=== PATIENT | male | born 1995 | race Caucasian/White ===

== ENCOUNTER 2019-08-06 13:38 | Inpatient (IN) ==
[2019-08-06] MEDS ORDERED: PHENOBARBITAL IV PRN (15:34)
[2019-08-06] MEDS ORDERED: SALINE LOCK IV FLUID XX ONE (15:34)
[2019-08-06] MEDS ORDERED: SENOKOT PO PRN (15:34)
[2019-08-06] MEDS ORDERED: SEROQUEL PO PRN (15:34)
[2019-08-06] MEDS ORDERED: ATARAX PO PRN (15:34)
[2019-08-06] MEDS ORDERED: D5W 1,000 ML IV PRN (15:34)
[2019-08-06] MEDS ORDERED: BENTYL PO PRN (15:34)
[2019-08-06] MEDS ORDERED: TUBERSOL ID ONE (15:34)
[2019-08-06] MEDS ORDERED: MOTRIN PO PRN (15:34)
[2019-08-06] MEDS ORDERED: ROBAXIN PO PRN (15:34)
[2019-08-06] MEDS ORDERED: DULCOLAX PR PRN (15:34)
[2019-08-06] MEDS ORDERED: ZOFRAN ODT PO PRN (15:34)
[2019-08-06] MEDS ORDERED: MAALOX PLUS LIQUID PO PRN (15:34)
[2019-08-06] MEDS ORDERED: ZOFRAN IV PRN (15:34)
[2019-08-06] MEDS ORDERED: IMODIUM PO PRN (15:34)
[2019-08-06] MEDS ORDERED: TYLENOL PO PRN (15:34)
[2019-08-06] MEDS ORDERED: DESYREL PO PRN (15:34)
[2019-08-06] MEDS ORDERED: NICODERM PATCH TD PRN (15:34)
[2019-08-06] MEDS ORDERED: LIBRIUM PO SCH (15:45)
[2019-08-06 16:07] LABS: HEMATOCRIT 45.3 % (42.0-52.0); HEMOGLOBIN 15.7 g/dL (14.0-18.0); MCH 30.8 PG (27-31); MCHC 34.7 g/dL (33-37); MCV 88.8 FL (81-99); MPV 10.8 FL (7.4-10.4); RBC 5.1 XMIL (4.7-6.1); RDW 11.8 % (11.5-14.5); WBC 5.83 X1000 (4.8-10.8)
[2019-08-06 16:22] LABS: PROTIME 13.7 Seconds (11.0-16.0)
[2019-08-06 16:27] LABS: AMYLASE 22 U/L (20-200); LIPASE 32 U/L (13-60)
[2019-08-06 16:29] LABS: AGAP 10; ALBUMIN 4.9 g/dL (3.5-5.0); ALKALINE PHOSPHATASE 49 U/L (32-122); BUN 15 mg/dL (8-22); CHLORIDE 101 mmol/L (98-107); COSMO 278; CREATININE 0.7 mg/dL (0.7-1.2); ESTIMATED GFR > 60; GLUCOSE 85 mg/dL (70-104); GOT 14 U/L (10-34); GPT 11 U/L (10-44); SODIUM 139 mmol/L (136-145); TCO2 28 mmol/L (25-35); TOTAL PROTEIN 7.5 g/dL (6.3-8.3)
[2019-08-06 18:30] LABS: URINE SOURCE VOIDED
[2019-08-06 18:40] LABS: UR AMPHETAMINES QUAL PRESUMPTIVE POSITIVE (NONE DETECT); UR BARBITUATES QUAL NONE DETECTED (NONE DETECT); UR BENZODIAZEPIN QUAL NONE DETECTED (NONE DETECT); UR COCAINE QUAL NONE DETECTED (NONE DETECT); UR METHADONE QUAL NONE DETECTED (NONE DETECT)
[2019-08-06 18:41] LABS: UR CANNABINOIDS QUAL NONE DETECTED (NONE DETECT); UR METHAMPHETAMINE QUAL PRESUMPTIVE POSITIVE (NONE DETECT); UR OPIATES QUAL NONE DETECTED (NONE DETECT); UR OXYCODONE QUAL NONE DETECTED (NONE DETECT); UR PCP QUAL NONE DETECTED (NONE DETECT); UR PROPOXYPHENE QUAL NONE DETECTED (NONE DETECT); UR TCA QUAL NONE DETECTED (NONE DETECT)
[2019-08-06 19:03] LABS: BILIRUBIN URINE NEGATIVE (NEGATIVE); BLOOD URINE NEGATIVE (NEGATIVE); CLARITY VERY CLOUDY (CLEAR); COLOR YELLOW; GLUCOSE URINE NEGATIVE (NEGATIVE); KETONE URINE NEGATIVE (NEGATIVE); LEUKOCYTES URINE NEGATIVE (NEGATIVE); NITRITE URINE NEGATIVE (NEGATIVE); PROTEIN URINE NEGATIVE (NEGATIVE); SP GRAVITY URINE 1.015; UROBILINOGEN URINE NORMAL
[2019-08-06 19:17] LABS: URINE BACTERIA 2+ /HFP; URINE EPITHELIAL CELLS <10 /HPF (<10); URINE WBC NS /HPF (<10)
[2019-08-06] MEDS ORDERED: M.V.I.-12 10 ML, FOLIC ACID 1 MG, MAGNESIUM SULFATE 1 GM, THIAMINE 100 MG in NS 1,000 ML IV ONE (20:00)
[2019-08-06] MEDS: LIBRIUM PO SCH (20:28)
[2019-08-07] MEDS: LIBRIUM PO SCH ×3 (02:32→13:30)
[2019-08-07] MEDS: PROTONIX PO SCH (06:41)
[2019-08-07] MEDS: FOLIC ACID PO SCH (08:15)
[2019-08-07] MEDS: THERA M PLUS PO SCH (08:15)
[2019-08-07] MEDS: VITAMIN B-1 PO SCH (08:15)
[2019-08-08] MEDS: LIBRIUM PO SCH ×3 (00:55→10:45)
[2019-08-08] MEDS: PROTONIX PO SCH ×2 (07:27→10:45)
[2019-08-08 07:48] VITALS: BP 110/67
--- NOTE | 2019-08-08 08:37 | PROGRESS NOTE ---
DATE: 08/08/2019 SUBJECTIVE: The patient notes that he is feeling okay, feeling anxious and nervous, but currently feels safe while he is in the hospital. PHYSICAL EXAMINATION: Vital Signs: Reviewed. General: He is awake, alert. He is in no respiratory distress. He is lying in the bed. He is no longer as fidgety. HEENT: Normocephalic. Neck: Supple. Cardiovascular: Regular rate. No murmurs. Chest: Clear. Abdomen: Soft. Extremities: Moves all extremities. Neurologic: No focal changes. ASSESSMENT: 1. Nausea, vomiting, abdominal pain. 2. Myalgias. 3. Tremors. 4. Paresthesias. 5. History of suicidality with substance abuse and withdrawal, currently stable. 6. History of polysubstance use and abuse. 7. Stimulant use, abuse, and withdrawal. 8. Paranoid schizophrenia and borderline personality disorder. PLAN: Currently, the patient is improving. He is stable. Certainly needs further psychiatric treatment upon completion of his withdrawal symptoms. I am very concerned that discharging him home prior to completely stabilizing from withdrawal symptoms would increase his thought pattern of suicidality as it has 3 times previously. Will continue him in the hospital for now. Continue to wean. Further orders as needed. cc: Kris Damon MD
--- NOTE | 2019-08-08 08:53 | HISTORY AND PHYSICAL ---
CHIEF COMPLAINT: Nausea and vomiting. HISTORY OF PRESENT ILLNESS: The patient is a 23-year-old male who presented to [facility] secondary to nausea, vomiting, abdominal pain, myalgias, and paresthesias. The patient has been abusing stimulants, and has been unable to stop. SOCIAL HISTORY: Patient is single. He is unemployed. Lives at home in [facility]. PAST MEDICAL HISTORY: PTSD, bipolar, borderline personality, and schizophrenia. History of blackouts, likely related to poor nutrition due to substance use and abuse. CINA score is 23 secondary to nausea, vomiting, abdominal pain, tremors with his arms at rest and unattended. Easily agitated, moderately anxious, having sensitivity to light. He has had suicide attempts when he has attempted to stop using. The second, he had planned to hang himself, and the third attempt was with carbon monoxide. He is having auditory hallucinations. He is restless, anxious and fidgety. MEDICATIONS: Risperdal. ALLERGIES: Sulfa. REVIEW OF SYSTEMS: Denies any headaches, blurred vision, or change in vision. Denies any focalized numbness or weakness. Denies any dysuria or frequency. Denies hesitancy, constipation, melena or hematochezia. MEDICATIONS: see chart SUBSTANCE ABUSE HISTORY: The patient was in [facility] in 2013 twice. Again, in 2016 was at [facility]. In 2019, he was in [facility]. Substance abuse has caused relationship problems and financial problems. The patient states he is losing his sense of reality, and is unsure how to get it back. He is not sure of what is real around him. Started alcohol at 11. Currently, he drinks a couple of times a week. Started marijuana at 14. Started depressants at 19, did not really like it. He started meth at 23. He has been using a gram a day for the past 6 or 7 months. He started cocaine at 21, and uses occasionally. Started hallucinogens at 16, used monthly for a year, but has not used since age 20. He started heroin at age 15, and stopped in 20. Started smoking at 18. Currently, he smokes pack a day. FAMILY HISTORY: Noncontributory. PHYSICAL EXAMINATION: VITAL SIGNS: Reviewed. GENERAL: Patient is awake and alert. He is in no respiratory distress. He is very pleasant. HEENT: Normocephalic. NECK: Supple. CV: Regular rate. CHEST: Clear. ABDOMEN: Soft. EXTREMITIES: Moves all extremities. NEUROLOGIC: The patient is awake, alert, and oriented although he is fidgety, anxious, and unable to sit still, and very difficult to answer questions. ASSESSMENT: 1. Nausea and vomiting. 2. Abdominal pain. 3. Myalgias. 4. Tremors. 5. Paresthesias. 6. History of suicidality during detox multiple times. 7. Paranoid schizophrenia. 8. Borderline personality disorder. PLAN: We will continue patient in the hospital, place him on Librium taper, and begin counseling. We will watch him very closely. As noted, he has had a history of suicidality during withdrawal although he is early in his withdrawal at this time. He currently is stable, and states as long as he is in the hospital, he does not feel lost and has no current desire to attempt suicide although clearly states he is unsure how this would "play out" at home. cc: Kris Damon MD MTDD
[2019-08-08] MEDS: VITAMIN B-1 PO SCH (10:45)
[2019-08-08] MEDS: FOLIC ACID PO SCH (10:45)
[2019-08-08] MEDS: THERA M PLUS PO SCH (10:45)
== END 2019-08-08 14:15 | disposition left against medical advice (07) | DRG 894 ==
LOC: P.DIRADM 14:49 → P.MEDSURG 15:15
PROVIDERS: ADMIT Family Medicine; ATTEND Family Medicine